=== PATIENT | female | born 1980 | race Asian ===

== ENCOUNTER 2017-03-23 03:04 | Emergency (ER) | payer OTHER ==
[2017-03-23 03:11] VITALS: BP 0/0
== END 2017-03-23 08:45 | disposition expired ==
LOC: ED 03:04
DX: I46.2 Cardiac arrest due to underlying cardiac condition (principal); I26.99 Other pulmonary embolism without acute cor pulmonale; C49.9 Malignant neoplasm of connective and soft tissue, unspecified; C79.82 Secondary malignant neoplasm of genital organs